=== PATIENT | male | born 1950 | race Caucasian/White ===

== ENCOUNTER 2019-03-12 05:07 | Day surgery (SDC) | payer OTHER ==
[2019-03-12] VITALS (9 sets, daily range): BP systolic 95–119; BP diastolic 65–89
[~2019-03-12] VITALS: Ht 172.7 cm; Wt 82.9 kg
[2019-03-12] MEDS ORDERED: normal saline 1,000 ML IV SCH (05:30)
[2019-03-12] MEDS ORDERED: LORazepam 0.5 MG tablet PO PRN (05:30)
[2019-03-12] MEDS ORDERED: diphenhydrAMINE 25mg capsule PO PRN (05:30)
[2019-03-12 05:55] LABS: BASOPHILS # (AUTO) 0.1 X10'3 (0-0.2); BASOPHILS % (AUTO) 0.8 % (0-1); EOSINOPHILS # (AUTO) 0.3 X10'3 (0-0.9); EOSINOPHILS % (AUTO) 2.7 % (0-6); HEMATOCRIT 35.4 % (42.0-52.0); HEMOGLOBIN 11.3 g/dl (14.0-17.9); LYMPHOCYTES # (AUTO) 2.6 X10'3 (1.1-4.8); LYMPHOCYTES % (AUTO) 28.5 % (21-51); MEAN CORPUSCULAR HEMOGLOBIN 23.3 PG (27.0-31.0); MEAN CORPUSCULAR HGB CONC 31.9 g/dL (33.0-36.5); MEAN CORPUSCULAR VOLUME 73.2 FL (78-98); MEAN PLATELET VOLUME 8.2 FL (7.4-10.4); MONOCYTES # (AUTO) 0.9 X10'3 (0-0.9); NEUTROPHILS # (AUTO) 5.4 X10'3 (1.8-7.7); PLATELET COUNT 588 X10'3 (140-440); RED BLOOD COUNT 4.84 X10'6 (4.70-6.10); RED CELL DISTRIBUTION WIDTH 18.6 % (11.5-14.5); WHITE BLOOD COUNT 9.2 X10'3 (4.5-11.0)
[2019-03-12 06:00] LABS: ALBUMIN 4.1 G/DL (3.4-5.0); ANION GAP 12 (8-16); BLOOD UREA NITROGEN 16 MG/DL (7-18); BUN/CREATININE RATIO 16.3 (5.4-32.0); CALCIUM 9.1 MG/DL (8.5-10.1); CHLORIDE 103 MMOL/L (99-107); CREATININE 0.98 MG/DL (0.60-1.10); GLUCOSE 104 MG/DL (70-104); POTASSIUM 3.9 MMOL/L (3.5-5.1); SODIUM 141 MMOL/L (135-145); TOTAL CARBON DIOXIDE 26.4 MMOL/L (24-32); eGFR 76 ML/MIN
[2019-03-12] MEDS ORDERED: DILT180C90 PO (06:16)
[2019-03-12] MEDS ORDERED: CLOP75TA33 PO (06:16)
[2019-03-12] MEDS ORDERED: MOME0.242 INH (06:16)
[2019-03-12] MEDS ORDERED: OMEP20CA15 PO (06:16)
[2019-03-12] MEDS ORDERED: ATOR-2 PO (06:16)
[2019-03-12] MEDS ORDERED: ASPI-1265 PO (06:16)
[2019-03-12] MEDS ORDERED: ALBU8.5H8 IH (06:16)
[2019-03-12] MEDS ORDERED: LISI-600 PO (06:16)
[2019-03-12] MEDS ORDERED: LORA10TA7 PO (06:16)
[2019-03-12] MEDS ORDERED: CHOL200052 PO (06:16)
[2019-03-12] MEDS ORDERED: LIDOcaine 1% (10mg/ml)w/preservative injection 20ml MDV ONE (06:27)
[2019-03-12] MEDS ORDERED: midazolam 2 mg/2 ml injection ONE (06:27)
[2019-03-12] MEDS ORDERED: fentaNYL/PF 50MCG/1 ML 2ML syringe ONE (06:27)
[2019-03-12] MEDS ORDERED: iohexol 350MG/ML 100ml bottle IV ONE (06:28)
[2019-03-12] MEDS ORDERED: iohexol 350 MG/ML 50ML vial IV ONE (06:56)
[2019-03-12] MEDS ORDERED: HYDROcodone/acetaminophen 5mg/325mg tablet PO PRN (07:30)
[2019-03-12] MEDS ORDERED: ondansetron/PF 4mg/2ml inj IV PRN (07:30)
[2019-03-12 07:31] LABS: ANISOCYTOSIS 2+; MICROCYTOSIS 1+; PLATELET ESTIMATE INCREASED; POIKILOCYTOSIS FEW; POLYCHROMASIA FEW
[2019-03-12 07:32] LABS: ELLIPTOCYTES FEW
[2019-03-12] MEDS ORDERED: OXAZEpam 15mg capsule PO PRN (07:35)
[2019-03-12] MEDS ORDERED: acetaminophen 325mg tablet PO PRN (07:35)
[2019-03-12] MEDS ORDERED: proCHLORperazine 10 MG/2 ml inj IV PRN (07:35)
[2019-03-12] MEDS ORDERED: HYDROcodone/acetaminophen 10/325mg tab PO PRN (07:35)
== END 2019-03-12 09:50 | disposition home or self-care (01) ==
LOC: SSTAY O 05:07
PROVIDERS: ATTEND Internal Medicine Interventional Cardiology
DX: R94.39 Abnormal result of other cardiovascular function study (principal); I25.119 Atherosclerotic heart disease of native coronary artery with unspecified angina pectoris; J45.909 Unspecified asthma, uncomplicated; E78.5 Hyperlipidemia, unspecified; I10 Essential (primary) hypertension; Z86.73 Personal history of transient ischemic attack (TIA), and cerebral infarction without residual deficits; Z79.01 Long term (current) use of anticoagulants; Z79.82 Long term (current) use of aspirin; Z79.899 Other long term (current) drug therapy; Z98.890 Other specified postprocedural states
CPT/HCPCS: 36415; 80048; 85025; 85610; 93005; 93458; 99152; 99153; C1769; J1644; J2001; J2250; J3010; J7030; Q0163; Q9967; A4620; A6258

== ENCOUNTER 2021-09-18 09:19 | Observation (INO) | payer OTHER ==
[2021-09-13 10:05] LABS: BASOPHILS # (AUTO) 0.1 X10'3 (0-0.2); BASOPHILS % (AUTO) 0.7 % (0-1); EOSINOPHILS # (AUTO) 0.2 X10'3 (0-0.9); EOSINOPHILS % (AUTO) 2.8 % (0-6); LYMPHOCYTES # (AUTO) 1.2 X10'3 (1.1-4.8); LYMPHOCYTES % (AUTO) 15.4 % (21-51); MEAN CORPUSCULAR HEMOGLOBIN 31.5 PG (27.0-31.0); MEAN CORPUSCULAR HGB CONC 33.3 g/dL (33.0-36.5); MEAN CORPUSCULAR VOLUME 94.8 FL (78-98); MEAN PLATELET VOLUME 8.5 FL (7.4-10.4); MONOCYTES # (AUTO) 0.8 X10'3 (0-0.9); MONOCYTES % (AUTO) 9.9 % (2-12); NEUTROPHILS # (AUTO) 5.6 X10'3 (1.8-7.7); NEUTROPHILS % (AUTO) 71.2 % (42-75); PRE OP HEMATOCRIT 39.1 % (42.0-52.0); PRE OP PLATELET COUNT 320 X10'3 (140-440); RED BLOOD COUNT 4.12 X10'6 (4.70-6.10); RED CELL DISTRIBUTION WIDTH 13.4 % (11.5-14.5)
[2021-09-13 10:35] LABS: ALBUMIN 3.5 G/DL (3.4-5.0); ALKALINE PHOSPHATASE 58 IU/L (46-116); BLOOD UREA NITROGEN 12 MG/DL (7-18); BUN/CREATININE RATIO 14.3 (5.4-32.0); CALCIUM 8.8 MG/DL (8.5-10.1); CHLORIDE 105 MMOL/L (99-107); CREATININE 0.84 MG/DL (0.60-1.10); PRE OP ALT 20 U/L (30-65); PRE OP ANION GAP 8 (8-16); PRE OP AST 17 U/L (10-37); PRE OP BILIRUB, TOTAL 0.9 MG/DL (0.0-1.0); PRE OP GLUCOSE 107 MG/DL (70-104); PRE OP POTASSIUM 4.1 MMOL/L (3.4-5.1); PRE OP SODIUM 140 MMOL/L (135-145); TOTAL CARBON DIOXIDE 27.1 MMOL/L (24-32); TOTAL PROTEIN 7.1 G/DL (6.4-8.2); eGFR 90 ML/MIN
[2021-09-17] MEDS: HYDROmorph/NS 0.2 mg/ml PCA 100 ML IV SCH (23:00)
[2021-09-18] VITALS (16 sets, daily range): BP systolic 132–146; BP diastolic 83–94
[~2021-09-18] VITALS: Ht 172.7 cm; Wt 83.9 kg
[~2021-09-18 09:19] MED LIST: ALBU8.5H17 IH; ATOR-2 PO; CHOL200052 PO; CLOP75TA33 PO; DILT180C90 PO; LISI20TA28 PO; LORA10TA7 PO; MOME220A5 INH; OMEP40CA21 PO; albuterol 2.5 MG/3 ML nebule NEB ONE; ceFAZolin inj. 2,000 MG in dextrose 5%-water 100 ML IV ONE; famotidine 20mg tablet PO ONE; meperidine/PF 25mg/ml syringe IV PRN; morphine 2 MG/ML inj. syringe IV PRN; morphine 4 MG/ML inj SYRINge IV PRN; ondansetron/PF 4mg/2ml inj IV PRN; proCHLORperazine 10 MG/2 ml inj IV PRN; ringers solution, lacted 1,000 ML IV SCH
[2021-09-18] MEDS ORDERED: fentaNYL /PF 50mcg/ml 5ml ampule ONE (10:49)
[2021-09-18] MEDS ORDERED: midazolam 1 mg/ML 2ml injection ONE (10:49)
[2021-09-18] MEDS ORDERED: propofol inj 20 ML IV ONE (10:50)
[2021-09-18] MEDS ORDERED: LIDOcaine 2% (20mg/ml) 5ml vial ONE (10:50)
[2021-09-18] MEDS ORDERED: rocuronium 10mg/ml inj IV ONE ×2 (10:50→12:42)
[2021-09-18] MEDS ORDERED: LIDOcaine 1% 30ml preserv. free vial ONE (11:13)
[2021-09-18] MEDS ORDERED: BUPIVAcaine/PF 2.5 mg/ml (0.25%) 30ml vial ONE (11:13)
[2021-09-18] MEDS ORDERED: ondansetron/PF 4mg/2ml inj ONE (11:20)
[2021-09-18] MEDS ORDERED: dexamethasone sod phosphate 10mg/ml inj ONE (11:20)
[2021-09-18] MEDS ORDERED: neostigmine methylsulfate 1 MG/ML 10ml vial ONE (11:20)
[2021-09-18] MEDS ORDERED: glycopyrrolate 0.2mg/ml inj ONE (11:20)
[2021-09-18] MEDS ORDERED: sevoflurane 250ml liquid IH ONE (11:20)
[2021-09-18] MEDS ORDERED: ePHEDrine 50MG/ML INJ. ONE (11:46)
[2021-09-18] MEDS ORDERED: albumin (Human) 5% 250ml 250 ML IV ONE (12:25)
[2021-09-18] MEDS ORDERED: INDOCYANINE GREEN 25 MG/10 ML VIAL IV ONE (14:26)
[2021-09-18] MEDS ORDERED: morphine 4 MG/ML inj SYRINge ONE (15:01)
--- NOTE | 2021-09-18 15:34 | NUR ---
Received from OR via HOSPITAL BED, accompanied by Anesthesiologist and report given by [facility] Anesthesiologist. PATIENT WAKING UP, DENIES PAIN, V/S WNL, SCD ON , PIV 20G LUE, DERMABONDED LAPS SITES X4 CLOSED CDI TO ABDOMEN. Addendum: 09/18/21 at 1600 by Denny Arellano RN Amended: Links added.
[2021-09-18] MEDS ORDERED: normal saline 1000ml 1,000 ML IV SCH (15:50)
[2021-09-18] MEDS ORDERED: metoclopramide 5 mg/ml inj IV PRN (15:50)
[2021-09-18] MEDS: ringers solution, lacted 1,000 ML IV SCH (15:50)
[2021-09-18] MEDS ORDERED: ondansetron/PF 4mg/2ml inj IV PRN (15:50)
[2021-09-18] MEDS ORDERED: naloxone 0.4 mg/ml inj IV PRN (15:50)
[2021-09-18] MEDS ORDERED: albuterol 2.5 MG/3 ML nebule NEB PRN (15:55)
[2021-09-18] MEDS ORDERED: CADD PCA waste documentation MC SCH (16:20)
[2021-09-18] MEDS ORDERED: HYDROmorph/NS 0.2 mg/ml PCA 100 ML IV SCH ×2 (16:30→17:00)
[2021-09-18] MEDS: HYDROmorph/NS 0.2 mg/ml PCA 100 ML IV SCH ×3 (16:34→21:00)
--- NOTE | 2021-09-18 17:34 | NUR ---
PATIENT HAS MET ALL CRITERIA FOR TRANSFER TO ORTHO FLOOR. VSS. DRESSINGS INTACT. BED LOW, CALL LIGHT PRESENT AND 2 RAILS UP. RN PRESENT TO ACCEPT CARE OF PATIENT AND REPORT HAS BEEN CALLED. ALL QUESTIONS ANSWERED TO ACCEPTING RN.
--- NOTE | 2021-09-18 17:34 | NUR ---
CARE OF PATIENT AND REPORT HAS BEEN CALLED. ALL QUESTIONS ANSWERED TO ACCEPTING RN. PATIENT HAS MET ALL CRITERIA FOR TRANSFER TO ORTHO FLOOR. VSS. DRESSINGS INTACT. BED LOW, CALL LIGHT PRESENT AND 2 RAILS UP. RN PRESENT TO ACCEPT Addendum: 09/18/21 at 1748 by Denny Arellano RN Amended: Links added.
--- NOTE | 2021-09-18 18:22 | NUR ---
Problems reprioritized. Patient report given, questions answered & plan of care reviewed with Carina CONKLIN.
[2021-09-18] MEDS: lisinopril 20mg tablet PO SCH (20:00)
[2021-09-18] MEDS: heparin, porcine 5000 units/ml vial SQ SCH (20:22)
[2021-09-18] MEDS ORDERED: atorvastatin 20mg tablet PO SCH (21:00)
[2021-09-18] MEDS ORDERED: diltiazem CD 180mg cap (once-daily) PO SCH (21:00)
[2021-09-18] MEDS ORDERED: budesonide 0.5mg/2ml UD nebule IH SCH (21:00)
[2021-09-19] MEDS: HYDROmorph/NS 0.2 mg/ml PCA 100 ML IV SCH ×7 (01:00→13:00)
[2021-09-19 02:00] VITALS: BP 110/66
[2021-09-19] MEDS: ringers solution, lacted 1,000 ML IV SCH ×2 (05:16→11:50)
[2021-09-19 05:46] LABS: BASOPHILS % (AUTO) 0.1 % (0-1); EOSINOPHILS % (AUTO) 0 % (0-6); HEMATOCRIT 36.5 % (42.0-52.0); HEMOGLOBIN 12.1 g/dl (14.0-17.9); LYMPHOCYTES # (AUTO) 0.4 X10'3 (1.1-4.8); MEAN CORPUSCULAR HEMOGLOBIN 31.5 PG (27.0-31.0); MEAN CORPUSCULAR HGB CONC 33.2 g/dL (33.0-36.5); MEAN CORPUSCULAR VOLUME 94.9 FL (78-98); MEAN PLATELET VOLUME 8.4 FL (7.4-10.4); MONOCYTES # (AUTO) 1.3 X10'3 (0-0.9); MONOCYTES % (AUTO) 12.2 % (2-12); NEUTROPHILS # (AUTO) 8.9 X10'3 (1.8-7.7); NEUTROPHILS % (AUTO) 83.7 % (42-75); PLATELET COUNT 319 X10'3 (140-440); RED BLOOD COUNT 3.84 X10'6 (4.70-6.10); RED CELL DISTRIBUTION WIDTH 13.9 % (11.5-14.5); WHITE BLOOD COUNT 10.6 X10'3 (4.5-11.0)
[2021-09-19 06:13] LABS: ALBUMIN 3.5 G/DL (3.4-5.0); ANION GAP 9 (8-16); BLOOD UREA NITROGEN 14 MG/DL (7-18); BUN/CREATININE RATIO 15.6 (5.4-32.0); CALCIUM 8.3 MG/DL (8.5-10.1); CHLORIDE 101 MMOL/L (99-107); GLUCOSE 122 MG/DL (70-104); POTASSIUM 4.8 MMOL/L (3.5-5.1); SODIUM 137 MMOL/L (135-145); eGFR 83 ML/MIN
[2021-09-19 07:10] VITALS: BP 120/87
[2021-09-19] MEDS ORDERED: loratadine 10mg tablet PO SCH (08:00)
[2021-09-19] MEDS ORDERED: pantoprazole 40mg Tablet.DR PO SCH (08:00)
[2021-09-19] MEDS ORDERED: clopidogrel 75mg tablet PO SCH (08:00)
[2021-09-19] MEDS: lisinopril 20mg tablet PO SCH (08:22)
[2021-09-19] MEDS: heparin, porcine 5000 units/ml vial SQ SCH (08:22)
--- NOTE | 2021-09-19 09:30 | NUR ---
Page sent to RT.. [id number] Mitchell Padilla: Patient has RT orders. thanks!
[2021-09-19 10:44] VITALS: BP 110/74
[2021-09-19] MEDS ORDERED: oxyCODONE/APAP 5-325mg tablet PO PRN (15:50)
--- NOTE | 2021-09-19 16:49 | NUR ---
Patient stable and appropriate for discharge home with . IV removed, monitoring manager removed. All belongings taken from room. New RX e-scripted to preferred pharmacy. All discharge instructions and education given and reviewed with patient and , all questions answered.
== END 2021-09-19 16:46 | disposition home or self-care (01) ==
LOC: PAS 09:19 → ORTHO 4S 15:51
PROVIDERS: ADMIT Surgery; ATTEND Surgery
DX: K44.9 Diaphragmatic hernia without obstruction or gangrene (principal); Z20.822 Contact with and (suspected) exposure to COVID-19; Z79.899 Other long term (current) drug therapy
CPT/HCPCS: 36415; 43282; 71045; 80048; 80053; 82948; 85025; 87811; 93005; 94760; 96365; 96366; 96372; 96375; C1758; C1781; G0378; J0690; J1100; J1170; J1644; J2175; J2250; J2270; J2405; J2704; J2710; J3010; J3490; J7030; J7060; J7120; P9045; S2900; A4615; A4618